=== PATIENT | female | born 1980 | race Caucasian/White ===

== ENCOUNTER 2021-04-11 09:02 | Outpatient (CLI) | payer BC | END 2021-04-11 09:03 | disposition home or self-care (01) | LOC: CSHMRI 09:02 | PROVIDERS: ATTEND Orthopaedic Surgery | DX: M24.811 Other specific joint derangements of right shoulder, not elsewhere classified (principal); M67.813 Other specified disorders of tendon, right shoulder; M75.50 Bursitis of unspecified shoulder; M25.811 Other specified joint disorders, right shoulder ==

== ENCOUNTER 2021-05-04 08:23 | Outpatient (CLI) | payer BC | END 2021-05-04 08:24 | disposition home or self-care (01) | LOC: CSHULT 08:23 | PROVIDERS: ATTEND Nurse Practitioner Family | DX: R10.10 Upper abdominal pain, unspecified (principal); Z90.49 Acquired absence of other specified parts of digestive tract | CPT/HCPCS: 76705 ==